=== PATIENT | female | born 1940 | race Caucasian/White ===

== ENCOUNTER 2017-11-01 11:07 | Observation (INO) ==
[2017-11-01] MEDS ORDERED: Furosemide 40 MG/4 ML VIAL IVP ONE (11:15)
[2017-11-01] MEDS ORDERED: Ipratropium/Albuterol Neb 3 ML IH ONE (11:15)
--- NOTE | 2017-11-01 11:18 | Emergency Department Note ---
Disposition Clinical Impression: Acute exacerbation of chronic obstructive airways disease Disposition: Admitted As Inpatient Condition: Fair Referrals: Jamal Rodriguez MD [Primary Care Provider] - Forms: ED Satisfaction Letter Time of Disposition: 12:16 (Dr Norwood) SOB HPI - General Chief Complaint: ED Shortness of Breath/Dyspnea Stated Complaint: Short of breath and pain all over 3 days Time Seen by Provider: 11/01/17 11:14 Source: patient Mode of arrival: ambulatory Limitations: no limitations Nursing Notes Reviewed: Yes Vital Signs Reviewed: Yes - History of Present Illness Pt Subjective Complaint: shortness of breath, pain with inspiration Onset (ago): day(s) (3) Context: occurred during exertion Severity: moderate Consistency/Duration: gradually worsening Improves with: rest, bronchodilators Worsens with: exertion Known history of: COPD, other (HTN) Associated symptoms: Reports: pain with inspiration, cough. Denies: fever, wheezing, sputum production, orthopnea, lower extremity pain, polyuria, polydipsia, parasthesias, palpitations, hemoptysis, diaphoresis, nausea/vomiting , syncope, abdominal pain, sense of impending doom Treatment prior to arrival: bronchodilator, aspirin Cough present: Yes Cough Description: Involuntary Cough Frequency: Intermittent Sputum production: No - Related Data Home oxygen amount: other (O2 prn) Home Medications Medication Instructions Recorded Confirmed Loratadine [Claritin] 10 mg PO DAILY 08/09/15 11/01/17 Montelukast [Singulair] 10 mg PO DAILY 08/09/15 11/01/17 Atorvastatin Calcium [Lipitor] 20 mg PO HS 07/02/17 11/01/17 Gabapentin [Neurontin] 400 mg PO TID 07/02/17 11/01/17 Levothyroxine Sodium [Levo-T] 100 mcg PO 0630 07/02/17 11/01/17 Losartan Potassium [Cozaar] 50 mg PO DAILY 07/02/17 11/01/17 Tolterodine Tartrate [Detrol] 2 mg PO BID 07/02/17 11/01/17 amLODIPine [Norvasc] 5 mg PO DAILY 07/02/17 11/01/17 Allergies Allergy/AdvReac Type Severity Reaction Status Date / Time No Known Allergies Allergy Verified 11/01/17 09:59 All systems ED: reviewed and negative except as stated. Review of Systems: As Per HPI Past Medical History - Past Medical History Medical history: Reports: asthma, COPD, hypertension Surgical history: Reports: no surgical history Psychiatric history: Reports: no psych history - Social History Smoking Status: Never smoker Smokeless Tobacco Status: No Alcohol use: Reports: none Drug use: Reports: none Physical Exam - General Limitations: no limitations General appearance: alert, in distress - Head Head exam: atraumatic, normocephalic, normal inspection - Eye Eye exam: Present: normal appearance, PERRL, EOMI. Absent: conjunctival injection - ENT ENT exam: normal exam, normal oropharynx, mucous membranes moist - Neck Neck exam: Present: normal inspection, full ROM, trachea midline - Expanded Neck Exam Neck exam focused ED: Absent: JVD, carotid bruit - Chest Chest inspection: Present: normal inspection, symmetric chest wall rise - Respiratory Respiratory exam: Present: prolonged expiratory phase. Absent: respiratory distress, wheezes, stridor - Expanded Respiratory Exam Location: rales: Lower, Right, Left, decreased breath sounds: Left, Right, Upper , Lower - Cardiovascular Cardiovascular exam: Present: regular rate, normal rhythm, normal heart sounds - Abdominal Exam Abdominal exam: Present: soft, Non-Tender. Absent: tenderness, distention, guarding, rebound, rigidity - Extremities Exam Extremities exam: Present: normal inspection, full ROM. Absent: tenderness, pedal edema, calf tenderness - Neurological Exam Neurological exam: Present: alert, oriented X3, CN II-XII intact, normal gait - Expanded Neurological Exam Patient oriented to: Present: person, place, time Coma Scale Eye Opening: Spontaneous Coma Scale Motor Response: Obeys Commands Coma Scale Verbal Response: Oriented Coma Scale Total: 15 - Psychiatric Psychiatric exam: Present: normal affect, normal mood - Skin Skin exam: Present: warm, dry, intact, normal color Course - Reevaluation(s) Reevaluation #1: Shortness of breath and work of breathing improve after DuoNeb treatment 1. Time: 11:43 Vital Signs Temperature 99.3 F 11/01/17 11:09 Pulse Rate 93 11/01/17 11:09 Respiratory Rate 24 11/01/17 11:09 Blood Pressure 143/81 11/01/17 11:09 O2 Sat by Pulse Oximetry 86 11/01/17 11:09 Temperature 99.3 F 11/01/17 11:09 Pulse Rate 91 11/01/17 11:50 Respiratory Rate 18 11/01/17 11:50 Blood Pressure 136/66 11/01/17 11:50 O2 Sat by Pulse Oximetry 93 11/01/17 11:50 Oxygen Delivery Oxygen Delivery Room Air Shortness of Breath/Dyspnea - [facility] Narrative Medical decision making narrative: Stable ED course with no impending respiratory failure. The patient improved tremendously after treatment. She will be admitted to the hospital for further pulmonary toileting. I did discuss the case with admitting hospitalist and will accept the patient. The patient is stable for admission - Differential Diagnosis Likely: acute exacerbation of chronic obstructive airways disease, congestive heart failure, pneumonia. Unlikely: pulmonary embolism, pneumothorax - Medical Records Medical records reviewed: Yes I reviewed the patient's medical records. The patient was seen and evaluated in June for ACS which was deemed to be negative. The patient underwent outpatient stress testing which was also within normal. The EKG was brought in from the urgent care and unremarkable compared to previous. The new EKG was compared to 07/02/17 EKG. - Lab Data Lab results reviewed: Yes I reviewed the patient's lab results. Result diagrams: 11/01/17 11:26 11/01/17 11:26 Lab Results 11/01/17 11/01/17 11/01/17 Range/Units 11:26 11:26 11:26 WBC 4.3 (4.3-11.1) K/mcL RBC 4.37 (3.82-4.97) M/mcL Hgb 13.3 (11.5-15.4) g/dL Hct 40.3 (35.3-44.9) % MCV 92.2 (83.0-100.0) fL MCH 30.4 (28.0-33.3) pg MCHC 33.0 (31.6-35.5) g/dL RDW 12.9 (11.5-14.5) % Plt Count 108 L (140-400) K/mcL MPV 10.3 (9.4-12.4) fL Immature Gran % 0.2 (0-4) % Seg Neutrophils % 54.6 % Lymphocytes % 32.6 % Monocytes % 11.9 % Eosinophils % 0.0 % Basophils % 0.7 % Neutrophils # 2.3 (1.6-8.9) K/mcL Lymphocytes # 1.4 (0.6-4.6) K/mcL Monocytes # 0.5 (0.0-1.3) K/mcL Eosinophils # 0.0 (0.0-0.6) K/mcL Basophils # 0.0 (0.0-0.2) K/mcL Sodium 137 (136-145) mEq/L Potassium 3.8 (3.5-5.1) mEq/L Chloride 102 (98-107) mEq/L Carbon Dioxide 27 (23-29) mEq/L BUN 15 (8-23) mg/dL Creatinine 1.01 (0.60-1.20) mg/dL Est GFR ( Amer) > 60 (> 60) Est GFR (Non-Af Amer) 53 L (> 60) BUN/Creatinine Ratio 15 (6-26) Glucose 125 H (70-105) mg/dL Calculated Osmolality 286 (280-300) Calcium 8.9 (8.6-10.3) mg/dL Troponin I < 0.03 (< 0.04) ng/mL B-Natriuretic Peptide 24 (Less than 100) pg/mL - Radiology Data Radiology results reviewed: Yes I reviewed the patient's radiology results. Outpatient chest x-ray read by radiologist: Stable cardiomegaly. Mild pulmonary vascular congestion area no acute focal airspace consolidation or overt pulmonary edema. - EKG Data Rate: Reports: normal Rhythm: Reports: NSR Interpretation: Reports: unchanged when compared to prior tracing (date) (), nonspecific ST-T wave changes
[2017-11-01 11:35] LABS: Basophils % 0.7 %; Hematocrit 40.3 % (35.3-44.9); Hemoglobin 13.3 g/dL (11.5-15.4); Immature Granulocytes % 0.2 % (0-4); Lymphocytes # 1.4 K/mcL (0.6-4.6); Lymphocytes % 32.6 %; Mean Corpuscular Hemoglobin 30.4 pg (28.0-33.3); Mean Corpuscular Volume 92.2 fL (83.0-100.0); Mean Platelet Volume 10.3 fL (9.4-12.4); Monocytes # 0.5 K/mcL (0.0-1.3); Monocytes % 11.9 %; Neutrophils # 2.3 K/mcL (1.6-8.9); Platelet Count 108 K/mcL (140-400); Red Blood Count 4.37 M/mcL (3.82-4.97); Red Cell Distribution Width 12.9 % (11.5-14.5); Segmented Neutrophils % 54.6 %
[2017-11-01] MEDS ORDERED: Benzonatate 100 MG CAPSULE PO STA (11:35)
[2017-11-01] MEDS ORDERED: Acetaminophen 325 MG TABLET PO ONE (11:35)
[2017-11-01 11:48] LABS: BUN/Creatinine Ratio 15 (6-26); Blood Urea Nitrogen 15 mg/dL (8-23); Calcium 8.9 mg/dL (8.6-10.3); Carbon Dioxide 27 mEq/L (23-29); Chloride 102 mEq/L (98-107); Glucose 125 mg/dL (70-105); Osmolality,Calculated 286 (280-300); Potassium 3.8 mEq/L (3.5-5.1); Sodium 137 mEq/L (136-145); eGFR For Non-African Americans 53 (> 60)
[2017-11-01 11:57] LABS: Troponin I < 0.03 ng/mL (< 0.04)
[2017-11-01 12:14] LABS: Bilirubin,Urine Negative (Negative); Blood,Urine Trace-intact (Negative); Clarity,Urine Clear (Clear); Color,Urine Yellow (Yellow); Glucose,Urine (UA) Normal (Normal); Ketones,Urine Negative (Negative); Leukocyte Esterase,Urine Trace (Negative); Nitrite,Urine Negative (Negative); Protein,Urine Negative (Neg-Trace); Urobilinogen,Urine Normal (Normal)
[2017-11-01 12:22] LABS: RBC,Urine 0-3 per hpf (0-3); Squamous Epithelial Cell,Urine Few per lpf (None-Few); WBC,Urine 0-3 per hpf (0-3)
--- NOTE | 2017-11-01 15:14 | Internal Med History&Physical ---
Date of Encounter: 11/01/17 Time of Encounter: 14:30 Assessment and Plan (1) Dyspnea Current visit: Yes Status: Acute Suspect viral bronchitis. Chest x-ray unremarkable and BN peptide normal. WBC normal with left shift. Recheck labs in a.m. Qualifiers: Dyspnea type: shortness of breath Qualified Code(s): R06.02 - Shortness of breath; R06.00 - Dyspnea, unspecified; R06.01 - Orthopnea (2) CKD (chronic kidney disease) stage 3, GFR 30-59 ml/min Current visit: Yes Status: Chronic GFR low on most labs in November 2013. Hold Lasix and Cozaar since blood pressure borderline low last check. Recheck labs in a.m. (3) HTN (hypertension) Current visit: No Status: Acute Hold Lasix and Cozaar for borderline low blood pressure. Qualifiers: Hypertension type: essential hypertension Qualified Code(s): I10 - Essential (primary) hypertension Internal Medicine - H&P: HPI Chief complaint: Dyspnea and weakness Admitted From: Emergency Dept Plans for Post Hospital Care: Home History of present illness: Ms. Campo is a 77 year old female who was directed to emergency room from urgent care complaining of dyspnea headache fevers and chills, and weakness onset 10/30/2017. She had no significant pain except when she coughed. Cough was nonproductive. She denies vomiting or diarrhea. When she did not improve significantly she went to urgent care and was directed to emergency room. She was dilated and felt to deserve admission for observation ongoing care needs. She denies previous similar episodes. She has had no unusual travel and denies similar symptoms in her contacts. Respiratory history is significant for being a lifelong nonsmoker. She reports PFTs were done approximately 5 years ago and showed COPD/asthma. She has oxygen at home for prn use. She has been diagnosed with NITA and wears CPAP at bedtime. Past Med Surg Social Fam HX - Past Medical History Medical history: asthma, COPD, hypertension Additional medical history: [place] 1995 Psychiatric history: no psych history - Past Surgical History Surgical History: no surgical history Additional surgical history: left knee replacement. right knee replacement - Social History Smoking Status: Never smoker Smokeless Tobacco Status: No Alcohol use: none Drug use: none - Family History Brother Hx Family Cardiac Disorders: Yes Internal Medicine - H&P: Meds Loratadine [Claritin] 10 mg PO DAILY 08/09/15 [History] Montelukast [Singulair] 10 mg PO DAILY 08/09/15 [History] Atorvastatin Calcium [Lipitor] 20 mg PO HS 07/02/17 [History] Gabapentin [Neurontin] 400 mg PO TID 07/02/17 [History] Levothyroxine Sodium [Levo-T] 100 mcg PO 0630 07/02/17 [History] Losartan Potassium [Cozaar] 50 mg PO DAILY 07/02/17 [History] Tolterodine Tartrate [Detrol] 2 mg PO BID 07/02/17 [History] Furosemide [Lasix] 20 mg PO DAILY 11/01/17 [History] Levocetirizine Dihydrochloride 5 gm MC DAILY 11/01/17 [History] 3 Allergy/AdvReac Type Severity Reaction Status Date / Time No Known Allergies Allergy Verified 11/01/17 09:59 All Systems PM: A 10-system review of systems was performed and is negative for pertinent findings except as documented above in the HPI. Review of systems: Gen.: She states her weight has been stable the past 2 months Cardiovascular: She has history of hypertension. She reports [place] 1995 followed by heart cath without intervention. She denies chest pain on exertion. She denies heart failure DVT or pulmonary embolus. Respiratory: As per history of present illness GI: She denies disorders of her liver gallbladder or exocrine pancreas : She had kidney stones approximately 50 years ago without recurrence. She has overactive bladder. She has chronic kidney disease stage III but does not follow with a kennel worker. She denies other kidney or bladder disorders. Neurologic: She denies large distribution strokes or seizures. Endocrine: She reports she is prediabetic. Hemoglobin A1c was 5.5% 12/18/2016. She has hypothyroidism and hyperlipidemia. Hematology/oncology: She denies blood disorders cancers or anemia Psychiatric: She denies anxiety depression or other mental health issues [place] skeletal: She has had bilateral total knee replacements. She denies arthritis gout or other bone joint or muscle disorders. - Constitutional Vitals: Temp Pulse Resp BP Pulse Ox 99.3 F 94 18 138/76 94 11/01/17 11:09 11/01/17 12:16 11/01/17 12:16 11/01/17 12:16 11/01/17 12:16 Exam: Gen.: She is a well-developed well-nourished female who appears in no acute distress at present time HEENT: Head is atraumatic and normal cephalic. Eyes: EOMI. There is no scleral icterus. Mouth: Mucosa is moist. Neck: Supple and nontender. There is no thyromegaly or adenopathy noted. Heart: Regular without murmurs gallops or ectopics Lungs: No wheezes or crackles are heard. Abdomen: Soft and nontender. No masses or guarding are noted. Extremities: There is no cyanosis edema or clubbing noted. Dorsalis pedis and posttibial pulses are trace palpable bilaterally. Neurologic: Mental status: She is talkative and a good historian. Cranial nerves: Smile is symmetric. Forehead reveals bilaterally. Tongue protrudes midline. EOMI. Motor: There is no pronator drift. Cerebellar: Finger to nose is intact bilaterally. Skin: Cool and clammy. Internal Med - H&P Results - Labs CBC & Chem 7: 11/01/17 11:26 11/01/17 11:26
[2017-11-01] MEDS ORDERED: Ketorolac 30 MG/ML VIAL IVP PRN (15:26)
[2017-11-01] MEDS ORDERED: Naloxone 0.4 MG/ML INJ IVP PRN (15:26)
[2017-11-01] MEDS ORDERED: *HR* HYDROcodone/Acet 5/325 mg TABLET PO PRN (15:26)
[2017-11-01] MEDS ORDERED: Ondansetron 4 MG/2 ML VIAL IVP PRN (15:26)
[2017-11-01] MEDS: Acetaminophen 325 MG TABLET PO PRN (16:29)
[2017-11-01] MEDS: 0.45 % Sodium Chloride w/KCl 20 MEQ/1,000 ML MLS IVC SCH (16:29)
[2017-11-01] MEDS: Gabapentin 400 MG CAPSULE PO SCH ×2 (16:29→21:34)
[2017-11-01] MEDS: Budesonide/Formoterol 160/4.5 MDI IH SCH (21:49)
[2017-11-02 06:02] LABS: Basophils % 0.3 %; Hematocrit 37.3 % (35.3-44.9); Hemoglobin 12.3 g/dL (11.5-15.4); Immature Granulocytes % 0.5 % (0-4); Lymphocytes # 0.8 K/mcL (0.6-4.6); Lymphocytes % 21.5 %; Mean Corpuscular Hemoglobin 30.1 pg (28.0-33.3); Mean Corpuscular Volume 91.4 fL (83.0-100.0); Mean Platelet Volume 10.3 fL (9.4-12.4); Monocytes # 0.4 K/mcL (0.0-1.3); Monocytes % 10.7 %; Neutrophils # 2.6 K/mcL (1.6-8.9); Platelet Count 128 K/mcL (140-400); Red Blood Count 4.08 M/mcL (3.82-4.97); Red Cell Distribution Width 12.4 % (11.5-14.5)
[2017-11-02 06:28] LABS: Alanine Aminotransferase 39 Units/L (7-52); Albumin 3.7 g/dL (3.5-5.7); Albumin/Globulin Ratio 1.3 (1.1-2.2); Alkaline Phosphatase 100 Units/L (34-104); Aspartate Amino Transferase 35 Units/L (13-39); BUN/Creatinine Ratio 24 (6-26); Bilirubin,Total 0.6 mg/dL (0.3-1.0); Blood Urea Nitrogen 23 mg/dL (8-23); Calcium 8.9 mg/dL (8.6-10.3); Carbon Dioxide 25 mEq/L (23-29); Chloride 104 mEq/L (98-107); Globulin 2.9 g/dL (2.4-3.5); Glucose 178 mg/dL (70-105); Osmolality,Calculated 294 (280-300); Potassium 4.1 mEq/L (3.5-5.1); Sodium 138 mEq/L (136-145); Total Protein 6.6 g/dL (6.4-8.9); eGFR For Non-African Americans 56 (> 60)
[2017-11-02] MEDS ORDERED: NON-FORMULARY MEDICATION 1 EACH EACH (Losartan Potassium [Cozaar] 50 MG) PO SCH (09:00)
[2017-11-02] MEDS ORDERED: Loratadine 10 MG TABLET PO SCH (09:00)
[2017-11-02] MEDS ORDERED: amLODIPine 5 MG TABLET PO SCH (09:00)
[2017-11-02] MEDS: Gabapentin 400 MG CAPSULE PO SCH (09:13)
[2017-11-02] MEDS: 0.45 % Sodium Chloride w/KCl 20 MEQ/1,000 ML MLS IVC SCH (09:13)
[2017-11-02] MEDS: Acetaminophen 325 MG TABLET PO PRN (09:14)
[2017-11-02] MEDS: Budesonide/Formoterol 160/4.5 MDI IH SCH (10:34)
[2017-11-02 11:45] VITALS: BP 107/66
--- NOTE | 2017-11-02 12:45 | Discharge Summary ---
Date of Encounter: 11/02/17 Time of Encounter: 12:35 - Discharge Diagnosis (1) Dyspnea Priority: Primary Status: Resolved Qualifiers: Dyspnea type: shortness of breath Qualified Code(s): R06.02 - Shortness of breath; R06.00 - Dyspnea, unspecified; R06.01 - Orthopnea (2) CKD (chronic kidney disease) stage 3, GFR 30-59 ml/min Priority: Secondary Status: Chronic (3) HTN (hypertension) Priority: Secondary Status: Chronic Qualifiers: Hypertension type: essential hypertension Qualified Code(s): I10 - Essential (primary) hypertension Hospital course: Ms. Campo is a 77 year old female who was directed to emergency room from a local urgent care after she presented complaining of dyspnea headache fevers and chills, and weakness onset 10/30/2017. She had no significant pain except when she coughed. Cough was nonproductive. She denies vomiting or diarrhea. When she did not improve significantly she went to urgent care and was directed to emergency room. She was evaluated and felt to deserve admission for observation ongoing care needs. Initial orders were written by the emergency room physician. I saw her on November 01 and performed the history and physical. Follow-up lab work on November 02 showed no elevation of WBC or left shift on differential. She remained afebrile and vital signs stable. I felt she likely had mild early viral bronchitis. No antibiotics were given. On November 02 she felt significantly improved and wished to be discharged home. She will follow with her PCP Dr. Rodriguez within 1 week. Lasix and Cozaar will be held since she had borderline hypotension during hospitalization. - Time Spent with Patient Total time spent providing and/or coordinating discharge services: - Discharge Medications Home Medications: Montelukast [Singulair] 10 mg PO DAILY 08/09/15 [History] Atorvastatin Calcium [Lipitor] 20 mg PO HS 07/02/17 [History] Gabapentin [Neurontin] 400 mg PO TID 07/02/17 [History] Levothyroxine Sodium [Levo-T] 100 mcg PO 0630 07/02/17 [History] Tolterodine Tartrate [Detrol] 2 mg PO BID 07/02/17 [History] Levocetirizine Dihydrochloride 5 gm MC DAILY 11/01/17 [History] Loratadine [Claritin] 10 mg PO DAILY PRN #0 08/21/18 [Rx] Allergies/Adverse Reactions: 3 Allergy/AdvReac Type Severity Reaction Status Date / Time No Known Allergies Allergy Verified 11/01/17 09:59 Date of admission: 11/01/17 12:22 Primary care physician: Jamal Rodriguez MD - Constitutional Vitals: Temp Pulse Resp BP Pulse Ox 98.7 F 74 14 107/66 95 11/02/17 11:42 11/02/17 11:42 11/02/17 11:42 11/02/17 11:42 11/02/17 11:42 - Patient Status Disposition: Home, Self-Care Condition: Fair - Discharge Instructions Follow Up With: Jamal Rodriguez MD [Primary Care Provider] - 1 week - Diet and Activity Activity: resume usual activities as tolerated Diet: advance to your usual diet
== END 2017-11-02 13:33 | disposition home or self-care (01) ==
LOC: INPPIK 11:07 → EMEROOPIK 11:07 → INPPIK 12:31
PROVIDERS: ADMIT Internal Medicine; ATTEND Internal Medicine